=== PATIENT | male | born 1980 | race African-American/Black ===

== ENCOUNTER 2017-04-03 15:19 | Inpatient (IN) | payer OTHER ==
[~2017-04-03] VITALS: Ht 175.3 cm; Wt 91.2 kg
--- NOTE | ~2017-04-03 | HC ---
[facility] [place] [address] CONSULTATION Name: RADHA JONES Room #: 416-P ADM IN M.R.#: [id number] Admission: 04/03/17 Attend Phys: Tylor Morris MD Discharge: Date of : 76 Report #: [id number] THIS REPORT FOR: //name// CC: [facility] physician/PCP Tylor Morris REASON FOR CONSULTATION: The patient is a 36-year-old who presented on 04/03/2017 with sigmoid colitis and microperforation with development of abscess. This is felt related to diverticulitis. He has been seen by General Surgery and GI service. Plan at this time is for delayed sigmoidectomy and reanastomosis after infection has subsided. The patient is now afebrile and hemodynamically stable. A drain was placed today. He has peripheral IV in place. No cough or sputum production. No nausea or vomiting. He has had some stools. No dysuria or frequency. ALLERGIES: None. MEDICATIONS: As noted on his MAR, now on Zosyn. PAST MEDICAL HISTORY: Hypertension. PAST SURGICAL HISTORY: No previous surgeries. FAMILY HISTORY: Noncontributory. SOCIAL HISTORY: He is a smoker of cigarettes and uses alcohol. REVIEW OF SYSTEMS: Noted above. PHYSICAL EXAMINATION: VITAL SIGNS: Afebrile, hemodynamically stable. GENERAL: Alert and cooperative, in no acute distress. HEENT: Unremarkable. CHEST: Clear. HEART: Regular. ABDOMEN: Diffusely tender, mostly in the lower abdomen, moderate distention. A drain in the mid lower abdomen with purulent drainage. EXTREMITIES: Unremarkable. LABORATORY STUDIES: Blood cultures negative. Hemoglobin 13.7, WBC 14.6, platelet count 328,000. Creatinine 0.9. CT of the abdomen and pelvis: Sigmoid pelvic abscess 3 x 6 x 6.8 cm in size in the lower abdomen just above the bladder, multiple stones in the gallbladder. IMPRESSION: Sigmoid diverticulitis with perforation and abscess. Recommend IV antibiotic therapy as an outpatient. Hopefully, this will calm down. Once infection has stabilized, then would proceed with a colonoscopy followed by a [facility] [address] [place] [address] CONSULTATION Name: KARENRADHA Room #: 416-P [facility] IN [facility]#: [id number] Admission: 04/03/17 Attend Phys: Tylor Morris MD Discharge: Date of : 76 Report #: [id number] sigmoid resection. This was discussed with the patient and his mother. We will arrange outpatient antibiotic therapy and home health. By: [id number] Rogelio Marquis MD /nt
--- NOTE | ~2017-04-03 | HC ---
[facility] [place] [address] CONSULTATION Name: RADHA JONES Room #: 416-P [facility] IN M.R.#: [id number] Admission: 04/03/17 Attend Phys: Tylor Morris MD Discharge: Date of : 76 Report #: [id number] THIS REPORT FOR: //name// CC: Jose LESLIE physician/PCP Tylor Morris GASTROINTESTINAL CONSULTATION REASON FOR CONSULTATION: The patient is a 36-year-old male with abdominal pain and evidence of microperforation of the colon on CT. HISTORY OF PRESENT ILLNESS: This 36-year-old male reports that he has been in good health all his life, he has not had any previous gastrointestinal problems or evaluations. He typically has 1 or 2 stools daily. He has never had problems with rectal bleeding, diarrhea, or abdominal pain. He reported that prior to his admission, he had eaten some foods from a vending machine, which he thought which was bad. He reported that he ate "bad burrito." He felt as though he was chewing some sort of bone or plastic material in burrito. Thereafter, the patient began to have crampy abdominal pain in his mid abdomen and symptoms lasted 3-4 days. At points, the pain was intense and 9 on a scale of 10. He subsequently was admitted to [facility] where he underwent evaluation. Laboratory studies revealed a white count of 16,000. It trended down to 11.9, but is 14.2 today. Hemoglobin was 15.6 initially, now down to 13.3 and platelet count was normal. His chemistries currently are normal. BUN is 7, creatinine is 0.8. Lactic acid of 1.0. His LFTs are normal. Albumin is 3.6 on admission. Lipase was also normal. He underwent a CT scan of the abdomen and pelvis with contrast. There was noted to be circumferential mural thickening on the mid sigmoid colon with evidence of microperforation or pericolonic inflammatory tissue stranding. There was no fluid collection which was thought to be drainable. He was seen by Dr. Jose Fischer. Thus far, he has been managed nonsurgically with antibiotics. He notes that although he still has some discomfort, the pain is much improved and now is he starting to have nonbloody bowel movements. PAST MEDICAL HISTORY: He reports otherwise he has been in good health and denies previous medical problems. PAST SURGICAL HISTORY: None. ALLERGIES: No known drug allergies. MEDICATIONS: He denies use of prescription medicines, [id number] [address] CONSULTATION Name: RADHA JONES Room #: 416-P [facility] IN ..#: [id number] Admission: 04/03/17 Attend Phys: Tylor Morris MD Discharge: Date of : 76 Report #: [id number] medicines or supplements. FAMILY HISTORY: There is no family history of colon cancer, colitis or inflammatory bowel disease. SOCIAL HISTORY: Never , has 5 children and he reports all in good health. He smokes anywhere from one-half to one pack of cigarettes per day. He will drink alcohol on the weekends on occasion, but not on a regular basis. He does smoke some marijuana, but otherwise does not use any drugs. REVIEW OF SYSTEMS: An entire 14-point review was completed with the patient. He reported negative to all questions, reports he has not previously had any health problems. PHYSICAL EXAMINATION: GENERAL: The patient is a well-developed, well-nourished male, in no acute distress. He ambulating around with his IV pulled and looks comfortable. VITAL SIGNS: He has been afebrile this admission. Blood pressure 128/81 and pulse of 77. HEENT: He is anicteric. Pupils are equal and round. Oropharynx is clear. NECK: Supple. CHEST: Clear. HEART: Regular rate and rhythm, normal S1 and normal S2. ABDOMEN: Normal bowel sounds, soft. He has lmeu-gd-[id number] tenderness in the midline just below the umbilicus. Abdomen is soft throughout. There is no rigidity whatsoever. I do not appreciate hepatosplenomegaly. RECTAL: Deferred. EXTREMITIES: Without cyanosis, clubbing, edema. NEUROLOGIC: Oriented to person, place and time. Ambulates normally around the room pushing his IV pull. ASSESSMENT: 1. Microperforation of the colon, nonsurgical management, improving. 2. Abnormal-appearing colon, questionably colitis. 3. Questionable history of ingestion of a florigen body. RECOMMENDATIONS: 1. Discussed with the patient. Agree with request regarding colonoscopy. However, would delay 4-6 weeks to allow healing of the current process. 2. Advance diet as tolerated and as indicated by clinical progress. <ELECTRONICALLY SIGNED> By: Caesar Peralta MD 04/08/17 1601 [id number] [id number] Caesar Peralta MD /roberto
[2017-04-03 15:38] VITALS: BP 130/85
[2017-04-03 17:00] LABS: ICTOTEST (BILI CONFIRMATORY) Negative (Negative); URINE BILIRUBIN 1+ (Negative); URINE BLOOD 1+ (Negative); URINE COLOR YELLOW; URINE GLUCOSE-RANDOM* NEGATIVE (Negative); URINE KETONES 1+ (Negative); URINE NITRITE NEGATIVE (Negative); URINE PROTEIN (DIPSTICK) TRACE (Negative); URINE UROBILINOGEN >= 8.0 E.U./dl (0.2-1.0)
[2017-04-03 17:09] LABS: BACTERIA 1-9 Few /HPF (None Seen); CASTS None Seen /LPF (None Seen); CRYSTALS None Seen /LPF (None Seen); SQUAMOUS 0-3 Few /LPF (0-3); URINE RBC 0-2 Rare /HPF (0-2); URINE WBC 0-5 Rare /HPF (0-5)
[2017-04-03 17:12] LABS: HEMATOCRIT 46.6 % (42.0-52.0); HEMOGLOBIN 15.6 gm/dL (14.0-18.0); MCH 28.7 pg (26.0-34.0); MCHC 33.5 g/dL (28.0-37.0); MCV 85.5 fL (80.0-100.0); PLATELET COUNT 250 thou/uL (150-400); RBC 5.45 mil/uL (4.50-6.00)
[2017-04-03 17:17] LABS: MANUAL DIFF YES
[2017-04-03 17:22] LABS: CALCIUM 9.6 mg/dL (8.5-10.1); CREATININE 1.1 mg/dL (0.7-1.3); POTASSIUM 3.9 mmol/L (3.5-5.1)
[2017-04-03 17:28] LABS: ALBUMIN 3.6 g/dL (3.4-5.0); TOTAL BILIRUBIN 0.7 mg/dL (<0.1-1.0); TOTAL PROTEIN 8.1 g/dL (6.4-8.2)
[2017-04-03 17:42] LABS: ABSOLUTE NEUTROPHILS 13.6 thou/uL (1.4-8.2); TOTAL CELL COUNT 100
[2017-04-03 20:28] VITALS: BP 124/82
[2017-04-03 21:14] VITALS: BP 115/73
[2017-04-04 02:31] VITALS: BP 115/73
[2017-04-04 06:17] VITALS: BP 105/55
[2017-04-04 06:19] LABS: HEMATOCRIT 40.9 % (42.0-52.0); HEMOGLOBIN 13.7 gm/dL (14.0-18.0); MCH 28.8 pg (26.0-34.0); MCHC 33.5 g/dL (28.0-37.0); MCV 85.9 fL (80.0-100.0); RBC 4.77 mil/uL (4.50-6.00); RDW 13.9 % (10.5-14.5); WBC 12.4 thou/uL (4.0-11.0)
[2017-04-04 06:30] LABS: CALCIUM 8.7 mg/dL (8.5-10.1); CREATININE 0.9 mg/dL (0.7-1.3)
[2017-04-04 07:50] VITALS: BP 129/75
[2017-04-04 16:18] VITALS: BP 98/59
[2017-04-04 20:18] VITALS: BP 108/53
[2017-04-05 03:15] VITALS: BP 115/64
[2017-04-05 03:59] LABS: CREATININE 0.9 mg/dL (0.7-1.3); POTASSIUM 3.9 mmol/L (3.5-5.1)
[2017-04-05 04:29] VITALS: BP 115/64
[2017-04-05 04:29] LABS: HEMATOCRIT 39.7 % (42.0-52.0); HEMOGLOBIN 13.1 gm/dL (14.0-18.0); MCH 28.5 pg (26.0-34.0); MCV 86.4 fL (80.0-100.0); RBC 4.6 mil/uL (4.50-6.00); RDW 13.8 % (10.5-14.5); WBC 11.9 thou/uL (4.0-11.0)
[2017-04-05 08:42] VITALS: BP 123/62
[2017-04-05 16:55] VITALS: BP 122/62
[2017-04-05 20:00] VITALS: BP 105/61
[2017-04-06 04:30] VITALS: BP 138/89
[2017-04-06 06:24] LABS: HEMATOCRIT 40.7 % (42.0-52.0); HEMOGLOBIN 13.4 gm/dL (14.0-18.0); MCH 28.3 pg (26.0-34.0); MCHC 33.1 g/dL (28.0-37.0); MCV 85.5 fL (80.0-100.0); PLATELET COUNT 245 thou/uL (150-400); RBC 4.76 mil/uL (4.50-6.00); RDW 13.7 % (10.5-14.5); WBC 14.1 thou/uL (4.0-11.0)
[2017-04-06 06:27] LABS: MANUAL DIFF YES
[2017-04-06 07:40] VITALS: BP 123/59
[2017-04-06 08:06] LABS: ABSOLUTE NEUTROPHILS 12.8 thou/uL (1.4-8.2); TOTAL CELL COUNT 100
[2017-04-06 08:07] LABS: ANISOCYTOSIS SLIGHT
[2017-04-06 21:42] VITALS: BP 134/79
[2017-04-07 05:22] LABS: HEMATOCRIT 39.7 % (42.0-52.0); HEMOGLOBIN 13.2 gm/dL (14.0-18.0); MCH 28.5 pg (26.0-34.0); MCHC 33.2 g/dL (28.0-37.0); MCV 85.8 fL (80.0-100.0); RBC 4.63 mil/uL (4.50-6.00); RDW 13.9 % (10.5-14.5); WBC 14.2 thou/uL (4.0-11.0)
[2017-04-07 05:44] LABS: CALCIUM 8.9 mg/dL (8.5-10.1); CREATININE 0.8 mg/dL (0.7-1.3)
[2017-04-07 08:40] VITALS: BP 128/81
[2017-04-07 17:20] VITALS: BP 138/75
[2017-04-07 19:09] VITALS: BP 139/81
[2017-04-08 03:51] VITALS: BP 130/79
[2017-04-08 06:48] LABS: HEMATOCRIT 41.7 % (42.0-52.0); HEMOGLOBIN 13.8 gm/dL (14.0-18.0); MCH 28.1 pg (26.0-34.0); MCHC 33.1 g/dL (28.0-37.0); MCV 85.1 fL (80.0-100.0); RBC 4.9 mil/uL (4.50-6.00); RDW 13.9 % (10.5-14.5); WBC 14.5 thou/uL (4.0-11.0)
[2017-04-08 07:01] LABS: CALCIUM 9.2 mg/dL (8.5-10.1); CREATININE 0.9 mg/dL (0.7-1.3); POTASSIUM 3.8 mmol/L (3.5-5.1)
[2017-04-08 07:40] VITALS: BP 141/85
[2017-04-08 15:54] VITALS: BP 141/85
[2017-04-08 20:00] VITALS: BP 135/74
[2017-04-09] VITALS (11 sets, daily range): BP systolic 111–140; BP diastolic 41–87
[2017-04-09 06:16] LABS: HEMATOCRIT 41.1 % (42.0-52.0); HEMOGLOBIN 13.7 gm/dL (14.0-18.0); MCH 28.5 pg (26.0-34.0); MCHC 33.2 g/dL (28.0-37.0); MCV 85.6 fL (80.0-100.0); RBC 4.8 mil/uL (4.50-6.00); WBC 14.6 thou/uL (4.0-11.0)
[2017-04-09 06:29] LABS: INR 1.4
[2017-04-09 06:32] LABS: CALCIUM 9.1 mg/dL (8.5-10.1); CREATININE 0.9 mg/dL (0.7-1.3); POTASSIUM 3.6 mmol/L (3.5-5.1)
[2017-04-09 06:42] LABS: APTT 38.2 Seconds (24.5-32.8); PROTIME 14.1 Seconds (9.3-11.4)
[2017-04-10 04:00] VITALS: BP 111/70
[2017-04-10 06:08] LABS: HEMATOCRIT 36.8 % (42.0-52.0); HEMOGLOBIN 12.6 gm/dL (14.0-18.0); MANUAL DIFF YES; MCH 29.1 pg (26.0-34.0); MCHC 34.3 g/dL (28.0-37.0); MCV 84.8 fL (80.0-100.0); PLATELET COUNT 310 thou/uL (150-400); RBC 4.34 mil/uL (4.50-6.00); RDW 13.8 % (10.5-14.5); WBC 7.9 thou/uL (4.0-11.0)
[2017-04-10 06:17] LABS: CALCIUM 8.8 mg/dL (8.5-10.1); CREATININE 0.6 mg/dL (0.7-1.3); POTASSIUM 3.1 mmol/L (3.5-5.1)
[2017-04-10 08:32] LABS: ABSOLUTE NEUTROPHILS 6.1 thou/uL (1.4-8.2); ATYPICAL LYMPHS 2 %; TOTAL CELL COUNT 100
[2017-04-10 08:33] LABS: ANISOCYTOSIS SLIGHT
[2017-04-10 15:48] VITALS: BP 129/78
[2017-04-10 20:47] VITALS: BP 129/87
[2017-04-11 05:32] VITALS: BP 126/73
[2017-04-11 08:30] VITALS: BP 150/93
[2017-04-11 09:21] VITALS: BP 150/93
[2017-04-11] MEDS ORDERED: ZOSYN 4.5 GRAM4.5 GM IV (10:01)
[2017-04-11 12:15] VITALS: BP 150/93
[2017-04-11] MEDS ORDERED: HYDROCODON-ACE1 EAC8 PO (14:47)
[2017-04-11 14:49] VITALS: BP 150/93
== END 2017-04-11 16:14 | disposition home health service (06) | DRG 392 ==
LOC: ER 15:19 → 4N 19:14 → EROBS 19:14 → 4N 21:00 → ENTRNSPT 04-11 16:04 → 4N 04-11 16:14
PROVIDERS: Family Medicine; Nurse Practitioner Family; Physician Assistant; Surgery
PROC: 0W9F3ZZ Drainage of Abdominal Wall, Percutaneous Approach (ICD-10-PCS; principal; 2017-04-09)
PROC: 02HV33Z Insertion of Infusion Device into Superior Vena Cava, Percutaneous Approach (ICD-10-PCS; 2017-04-09)
PROC: B548ZZA Ultrasonography of Superior Vena Cava, Guidance (ICD-10-PCS; 2017-04-09)
DX: K52.9 Noninfective gastroenteritis and colitis, unspecified (principal); K57.20 Diverticulitis of large intestine with perforation and abscess without bleeding; D72.829 Elevated white blood cell count, unspecified; F17.210 Nicotine dependence, cigarettes, uncomplicated; I10 Essential (primary) hypertension; Z79.899 Other long term (current) drug therapy
CPT/HCPCS: 10091; 27000

== ENCOUNTER → 2017-04-18 | Outpatient (CLI) | payer OTHER ==
[~2017-04-18] MED LIST: HYDROCODON-ACE1 EAC8 PO; ZOSYN 4.5 GRAM4.5 GM IV
== END ==
LOC: CAT 11:41
DX: K57.30 Diverticulosis of large intestine without perforation or abscess without bleeding (principal)

== ENCOUNTER → 2017-04-30 | Outpatient (CLI) | payer OTHER | LOC: SPEC 08:13 | DX: K57.32 Diverticulitis of large intestine without perforation or abscess without bleeding (principal); L02.91 Cutaneous abscess, unspecified ==

== ENCOUNTER → 2017-05-29 | Outpatient (CLI) | payer OTHER ==
[~2017-05-29] MED LIST changes: +AMOXICILLIN 50500 MG PO; +FLAGYL500 MG PO
--- NOTE | ~2017-05-29 | P ---
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 He is on long-term antibiotics with anticipation of surgery in 10 days. He presents for colonoscopy prior to surgery. PREOPERATIVE DIAGNOSIS: Complicated diverticulitis. POSTOPERATIVE DIAGNOSES: 1. Multiple colon polyps. 2. Moderately severe diverticulosis coli with a thickened segment in mid sigmoid, 30 cm. 3. Small internal hemorrhoids. MEDICATIONS: Deep sedation with propofol per anesthesia. SPECIMEN: 1. Polyp, cecum. 2. Polyp at 70 cm. 3. Polyp at 50 cm. 4. Polyp at 35 cm. ESTIMATED BLOOD LOSS: 3 mL. PROCEDURE: Colonoscopy to cecum and terminal ileum with snare polypectomy and biopsy. FINDINGS: Prior to propofol sedation, procedure of colonoscopy was discussed with the patient as well as potential risks and its complications. He indicates he understands and desires to proceed. DESCRIPTION OF PROCEDURE: With the patient in left lateral decubitus position, digital examination was completed which revealed no abnormalities. Subsequently, the hovelstayi video colonoscope was introduced into the rectum and advanced under direct vision to the cecum. Done with some difficulty due to diverticular disease in the left colon. The cecum was reached and identified by [facility] [address] [place] [address] PROCEDURE REPORT Name: RADHA JONES Room #: REG [facility].#: [id number] Admission: 05/29/17 Attend Phys: Caesar Peralta MD Discharge: Date of : 76 Report #: [id number] the ileocecal valve and the appendiceal orifice. I was able to visualize the distal segment of terminal ileum, which was inspected and noted to be unremarkable. At that point, the scope was slowly withdrawn and careful circumferential views obtained including retroflexing the scope in the ascending colon. Upon slow withdrawal of the scope, the prep was noted to be excellent. The mucosa was within normal limits, normal vascular pattern, normal light reflex. As we withdrew the scope, he was noted to have a diminutive polyp in the cecum, which was removed by biopsy. The scope was further withdrawn and no additional abnormalities were noted until about 70 cm, at which point, another diminutive polyp was seen and removed by biopsy. A third polyp was identified and removed at 50 cm. It was also a diminutive polyp. At 35 cm, a 5 mm sessile polyp was seen and removed by cold snare polypectomy. Scope was further withdrawn and he was noted to have moderately severe diverticular disease, mostly in the sigmoid colon. I did not see active diverticulitis, but at 30 cm, there was some luminal narrowing with thickened erythematous mucosa. The mucosa was intact. There was no purulent material. This was felt to likely represent the area of the fistula. A fistula tract was not seen today. The scope was further withdrawn. No additional abnormalities were seen. Upon retroflexion in the rectum, small hemorrhoids were seen. Scope was withdrawn. The patient tolerated the procedure well. CONDITION OF THE PATIENT UPON DISCHARGE: Following procedure, the patient was drowsy and arousable. He will be discharged home when fully ambulatory. INSTRUCTIONS TO THE PATIENT AND FAMILY AT THE TIME OF DISCHARGE: We will follow up on the path report and make surveillance recommendations with regard to the polyps. If 3 or more adenomas, he should return and he is to return in 3 years. If 1 or 2 adenomas, he should return in 5 years; if none are adenomas, then he is to return in 10 years. He will also follow up with Dr. Jose Fischer for anticipated segmental sigmoid resection in the near future. By: [id number] Caesar Peralta MD /roberto
--- NOTE | ~2017-05-29 | S ---
[facility] [place] [address] SURGICAL PATH RPT PROCEDURE Name: JAKE BROWNING [id number] Ad[facility]: 05/29/17 Date of : 76 Discharge: Report #: [id number] Path Case #: [id number] PATHOLOGY REPORT COLLECTION DATE: 05/29/2017 RECEIVED DATE: 05/29/2017 SUBMITTING PHYS: Dr. Caesar Peralta OTHER PHYS: Dr. Nitish Samson SPECIMEN(S) RECEIVED: A.Polyp at cecum B.Polyp at 70cm C.Polyp at 50cm D.Polyp at 35cm * * * * * * * * * * * * FINAL DIAGNOSIS: A. Polyp, at cecum, endoscopic biopsy: - Minute tubular adenoma associated with hyperplastic changes and inflammation. - Negative for high-grade dysplasia. B. Polyp, at 70 cm, endoscopic biopsy: - Tubular adenoma. - Negative for high-grade dysplasia. C. Polyp, at 50 cm, endoscopic biopsy: - Tubular adenoma. - Negative for high-grade dysplasia. D. Polyp, at 35 cm, endoscopic biopsy: - Tubular adenoma. - Negative for high-grade dysplasia. (IUV:pit; 05/30/2017) PATHOLOGIST: Pamela Coates M.D. REPORT ELECTRONICALLY SIGNED BY: Pamela Coates M.D. DATE/TIME: 05/30/2017 15:33 * * * * * * * * * * * * GROSS PATHOLOGY: A. Received in formalin labeled "Jake Nam, polyp at cecum," are 2 segments of huynh soft tissue measuring 1.4 x 0.4 x 0.3 cm in aggregate dimensions and ranging from 0.5 to 0.7 cm in maximum dimension. The specimen is submitted entirely in cassette A1. B. Received in formalin labeled "Jake Browning, polyp at 70 cm," are 2 segments of huynh soft tissue measuring 1.0 x 0.4 x 0.4 cm in aggregate dimensions and ranging from 0.5 to 0.6 cm in maximum dimension. The specimen is submitted entirely in cassette B1. [address] [address] SURGICAL PATH RPT PROCEDURE Name: JAKE BROWNING Room #: REG [facility].#: [id number] Admission: 05/29/17 Date of : 76 Discharge: Report #: [id number] Path Case #: [id number] C. Received in formalin labeled "Jake Browning, polyp at 50 cm," are 2 segments of huynh soft tissue measuring 0.8 x 0.4 x 0.4 cm in aggregate dimensions and ranging from 0.3 to 0.5 cm in maximum dimension. The specimen is submitted entirely in cassette C1. D. Received in formalin labeled "Jake Browning, polyp at 35 cm," is a segment of huynh soft tissue measuring 0.7 cm in maximum dimension. The specimen is submitted entirely in cassette D1. (TSD; 05/29/2017) CLINICAL HISTORY: Pre-OP DX: Pre-OP colon, diverticulitis Post-OP DX: Colon polyps, diverticulosis, small hemorrhoids INITIAL CPT CODE(S): A; 75978 B; 76061 C; 14486 D; 26677 Professional services performed by [facility] at [facility] [address] [place] [address] Technical services performed by [facility] at [address] [place] [address], [address], [place] [address]. [facility] [address] [place] [address] PHONE: [phone] DIRECTOR: Roni Watts M.D. * * * END OF REPORT * * *
== END | disposition home or self-care (01) ==
LOC: GI 08:05
DX: D12.0 Benign neoplasm of cecum (principal); D12.4 Benign neoplasm of descending colon; D12.5 Benign neoplasm of sigmoid colon; K57.30 Diverticulosis of large intestine without perforation or abscess without bleeding; K64.8 Other hemorrhoids
CPT/HCPCS: 62110; 62900

== ENCOUNTER 2018-10-08 02:22 | Emergency (ER) | payer OTHER ==
[~2018-10-08] VITALS: Ht 175.3 cm; Wt 99.8 kg
[~2018-10-08 02:22] MED LIST changes: +HYDROCODON-ACE1 EAC7 PO; +MIRALAX17 GM PO; +ONDANSETRON HCL4 M2 PO
[2018-10-08 03:01] LABS: URINE BILIRUBIN NEGATIVE (Negative); URINE BLOOD TRACE (Negative); URINE CLARITY CLEAR; URINE COLOR YELLOW; URINE GLUCOSE-RANDOM* NEGATIVE (Negative); URINE KETONES NEGATIVE (Negative); URINE LEUKOCYTES-REFLEX NEGATIVE (Negative); URINE NITRITE-REFLEX NEGATIVE (Negative); URINE PROTEIN (DIPSTICK) NEGATIVE (Negative); URINE SPECIFIC GRAVITY 1.025 (1.005-1.035); URINE UROBILINOGEN 0.2 E.U./dl (0.2-1.0)
[2018-10-08 03:01] LABS: ABSOLUTE NEUTROPHILS 5.6 thou/uL (1.4-8.2); BASOPHILS 0.5 % (0.0-2.0); EOSINOPHILS 2.8 % (0.0-3.0); HEMOGLOBIN 15.7 gm/dL (14.0-18.0); LYMPHOCYTES 17.1 % (24.0-44.0); MCH 28.9 pg (26.0-34.0); MONOCYTES 6.3 % (1.0-8.0); PLATELET COUNT 220 thou/uL (150-400); POLYS 73.3 % (36.0-66.0); RBC 5.41 mil/uL (4.50-6.00); RDW 14.3 % (10.5-14.5); WBC 7.6 thou/uL (4.0-11.0)
[2018-10-08 03:09] LABS: ANION GAP 13 mmol/L (7-16); BUN 15 mg/dL (7-18); CALCIUM 9.3 mg/dL (8.5-10.1); CHLORIDE 103 mmol/L (98-107); CO2 25 mmol/L (21-32); CREATININE 1.1 mg/dL (0.7-1.3); GLUCOSE 136 mg/dL (74-106); POTASSIUM 3.4 mmol/L (3.5-5.1); SODIUM 141 mmol/L (136-145)
[2018-10-08 03:15] LABS: DIRECT BILIRUBIN < 0.1 mg/dL (<0.1-0.3); LIPASE 185 U/L (73-393); SGOT 23 U/L (15-37); SGPT 40 U/L (30-65); TOTAL BILIRUBIN 0.5 mg/dL (<0.1-1.0); TOTAL PROTEIN 7.5 g/dL (6.4-8.2)
[2018-10-08] MEDS ORDERED: FLAGYL500 M1 PO (04:30)
[2018-10-08] MEDS ORDERED: CIPROFLOXACIN500 M1 PO (04:30)
[2018-10-08 04:50] VITALS: BP 141/60
== END 2018-10-08 04:50 | disposition home or self-care (01) ==
LOC: ER 02:22
PROVIDERS: Emergency Medicine
DX: K52.9 Noninfective gastroenteritis and colitis, unspecified (principal); F17.210 Nicotine dependence, cigarettes, uncomplicated; Z91.013 Allergy to seafood